=== PATIENT | female | born 1985 | race African-American/Black ===

== ENCOUNTER 2017-03-18 06:14 | Emergency (ER) | payer MEDICAID, OTHER ==
[~2017-03-18] VITALS: Ht 165.1 cm; Wt 78.0 kg
[2017-03-18] MEDS ORDERED: ONDANSETRON HCL 4MG/2ML VIAL IV STA (06:55)
[2017-03-18] MEDS ORDERED: VISCOUS LIDOCAINE 2% 15 ML UDC PO STA (06:55)
[2017-03-18] MEDS ORDERED: SODIUM CHLORIDE 0.9% 1,000 ML IV ONE (06:55)
[2017-03-18] MEDS ORDERED: FAMOTIDINE 20MG/2ML VIAL IV STA (06:55)
[2017-03-18] MEDS ORDERED: KETOROLAC 30MG/ML VIAL IV STA (06:55)
[2017-03-18] MEDS ORDERED: DICYCLOMINE 10 MG/5 ML ORAL SYR PO STA (06:55)
[2017-03-18] MEDS ORDERED: MAGNESIUM/ALUMINUM HYDROXIDE/SIMETHICONE 30ML UDC PO STA (06:55)
[2017-03-18 07:20] LABS: BASOPHILS % 0.3 % (0.0-2.0); HEMATOCRIT. 37.3 % (36.0-48.0); HEMOGLOBIN. 12.8 g/dL (12.0-16.0); LYMPHOCYTES % 13.7 % (20.0-50.0); MEAN CORPUSCULAR HEMOGLOBIN 28.2 pg (28.0-32.0); MEAN CORPUSCULAR HGB CONC 34.2 g/dL (31.0-37.0); MEAN CORPUSCULAR VOLUME 82.5 fL (81.0-99.0); MEAN PLATELET VOLUME 9.2 fl (7.4-10.4); MONOCYTES % 6.8 % (2.0-8.0); NEUTROPHILS % 77.2 % (40.0-76.0); PLATELET 259 x1000/uL (130-400); RED BLOOD CELL COUNT 4.52 mill/uL (4.2-5.4); WHITE BLOOD COUNT 8.6 x1000/uL (4.5-11.0)
[2017-03-18 07:29] LABS: PROTHROMBIN TIME 10.6 sec
[2017-03-18 07:32] LABS: HCG SCREEN NEGATIVE
[2017-03-18 07:35] LABS: ALANINE AMINOTRANSFERASE 136 IU/L (13-61); ALBUMIN 3.6 g/dL (3.4-5.0); AMYLASE 45 IU/L (25-115); ANION GAP 12; CALCIUM 9.7 mg/dL (8.5-10.1); CARBON DIOXIDE 27 mEq/L (21-32); CHLORIDE 103 mEq/L (98-107); INDEX HEMOLYSI 1 (1-3); INDEX ICTERIC 1 (1-4); INDEX LIPEMIC 1 (1-3); LIPASE 110 IU/L (73-393); TROPONIN I < 0.02 ng/mL (0.00-0.04); UREA NITROGEN BLOOD 14 mg/dL (7-21); eGFR > 60 mL/min (>60)
[2017-03-18 08:34] LABS: CLARITY URINE CLEAR (CLEAR); COLOR URINE YELLOW (YELLOW); GLUCOSE URINE NEGATIVE (NEGATIVE); KETONES URINE NEGATIVE (NEGATIVE); LEUKOCYTE ESTERASE URINE NEGATIVE (NEGATIVE); NITRITE URINE NEGATIVE (NEGATIVE); OCCULT BLOOD URINE NEGATIVE (NEGATIVE); PH URINE 7.5 (4.5-8.0); PROTEIN URINE NEGATIVE (NEGATIVE); UROBILINOGEN URINE 0.2 E.U./dL (0.2-1.0)
[2017-03-18 09:52] VITALS: BP 103/61
== END 2017-03-18 11:10 | disposition home or self-care (01) ==
LOC: ER 06:16
DX: K29.00 Acute gastritis without bleeding (principal); Z98.890 Other specified postprocedural states
CPT/HCPCS: 36415; 76705; 80053; 81003; 82150; 83690; 84484; 84703; 85025; 85610; 96361; 96374; 96375; 99285; J1885; J2405; J3490; J7030; Z7610

== ENCOUNTER 2017-10-13 10:36 | Emergency (ER) | payer MEDICAID ==
[~2017-10-13] VITALS: Ht 160 cm; Wt 79.0 kg
[~2017-10-13 10:36] MED LIST: LEVO500T2 PO; METR250T PO
[2017-10-13 11:19] VITALS: BP 126/79
[2017-10-13] MEDS ORDERED: MAGNESIUM/ALUMINUM HYDROXIDE/SIMETHICONE 30ML UDC PO STA (11:54)
[2017-10-13] MEDS ORDERED: ONDANSETRON 4MG ODT PO STA (11:54)
[2017-10-13] MEDS ORDERED: ACETAMINOPHEN 325MG TABLET PO STA (11:54)
[2017-10-13 12:14] LABS: BASOPHILS % 0.5 % (0.0-2.0); EOSINOPHILS % 3.8 % (0.0-5.0); HEMATOCRIT. 38.4 % (36.0-48.0); HEMOGLOBIN. 13.2 g/dL (12.0-16.0); LYMPHOCYTES % 24.1 % (20.0-50.0); MEAN CORPUSCULAR HEMOGLOBIN 28.8 pg (28.0-32.0); MEAN CORPUSCULAR VOLUME 83.6 fL (81.0-99.0); MEAN PLATELET VOLUME 10.1 fl (7.4-10.4); MONOCYTES % 7.6 % (2.0-8.0); PLATELET 248 x1000/uL (130-400); RED BLOOD CELL COUNT 4.59 mill/uL (4.2-5.4); RED CELL DISTRIBUTION WIDTH 13.8 % (11.6-14.6)
[2017-10-13 12:19] LABS: CLARITY URINE CLOUDY (CLEAR); COLOR URINE ORANGE (YELLOW); GLUCOSE URINE NEGATIVE (NEGATIVE); KETONES URINE NEGATIVE (NEGATIVE); LEUKOCYTE ESTERASE URINE 1+ (NEGATIVE); NITRITE URINE NEGATIVE (NEGATIVE); OCCULT BLOOD URINE 3+ (NEGATIVE); PH URINE 5.5 (4.5-8.0); PROTEIN URINE TRACE (NEGATIVE); SPECIFIC GRAVITY URINE 1.019 (1.005-1.030); UROBILINOGEN URINE 0.2 E.U./dL (0.2-1.0)
[2017-10-13 12:25] LABS: CARBON DIOXIDE 28 mEq/L (21-32); CHLORIDE 106 mEq/L (98-107)
== END 2017-10-13 14:33 | disposition home or self-care (01) ==
LOC: ER 10:51
DX: K21.9 Gastro-esophageal reflux disease without esophagitis (principal); N39.0 Urinary tract infection, site not specified
CPT/HCPCS: 36415; 80053; 81001; 81025; 83690; 85025; 99284; Q0162

== ENCOUNTER 2017-11-19 18:33 | Emergency (ER) | payer MEDICAID, OTHER ==
[~2017-11-19] VITALS: Ht 160 cm; Wt 83.0 kg
[2017-11-19] MEDS ORDERED: KETOROLAC 15MG/ML VIAL IM ONE (21:45)
[2017-11-19] MEDS ORDERED: DEXAMETHASONE 10 MG/ML VIAL IM ONE (21:45)
[2017-11-19 22:21] VITALS: BP 124/87
== END 2017-11-19 22:22 | disposition home or self-care (01) ==
LOC: ER 18:33
DX: J02.0 Streptococcal pharyngitis (principal); Z98.890 Other specified postprocedural states
CPT/HCPCS: 81025; 96372; 99284; J1100; J1885

== ENCOUNTER 2019-10-13 05:58 | Emergency (ER) | payer MEDICAID, OTHER ==
[~2019-10-13] VITALS: Ht 162.6 cm; Wt 90.0 kg
[2019-10-13 07:35] VITALS: BP 122/78
== END 2019-10-13 07:35 | disposition home or self-care (01) ==
LOC: ER 06:52
DX: O26.893 Other specified pregnancy related conditions, third trimester (principal); H60.591 Other noninfective acute otitis externa, right ear; E11.9 Type 2 diabetes mellitus without complications; Z98.890 Other specified postprocedural states
CPT/HCPCS: 99283

== ENCOUNTER 2021-08-01 16:49 | Emergency (ER) | payer MEDICAID ==
[~2021-08-01] VITALS: Ht 162.6 cm; Wt 73.0 kg
[~2021-08-01 16:49] MED LIST changes: +DIF15 MT; +DOXY100T2 MT; -LEVO500T2 PO; -METR250T PO; +METR500T MT; +NITR-87 MT
[2021-08-01] MEDS ORDERED: ACETAMINOPHEN 325MG TABLET PO ONE (18:30)
[2021-08-01] MEDS ORDERED: AMOXICILLIN/POTASSIUM CLAVULANATE 875/125MG TAB PO ONE (18:30)
[2021-08-01 18:44] LABS: BASOPHILS % 0.3 % (0.0-2.0); EOSINOPHILS % 3.4 % (0.0-5.0); HEMATOCRIT. 39.2 % (36.0-48.0); HEMOGLOBIN. 13.6 g/dL (12.0-16.0); LYMPHOCYTES % 19.6 % (20.0-50.0); MEAN CORPUSCULAR HEMOGLOBIN 29.4 pg (28.0-32.0); MEAN CORPUSCULAR VOLUME 84.6 fL (81.0-99.0); MEAN PLATELET VOLUME 10.2 fl (7.4-10.4); MONOCYTES % 6.6 % (2.0-8.0); NEUTROPHILS % 70.1 % (40.0-76.0); PLATELET 288 x1000/uL (130-400); RED BLOOD CELL COUNT 4.64 mill/uL (4.2-5.4); RED CELL DISTRIBUTION WIDTH 13.9 % (11.6-14.6)
[2021-08-01 18:47] LABS: CLARITY URINE CLEAR (CLEAR); COLOR URINE YELLOW (YELLOW); KETONES URINE NEGATIVE (NEGATIVE); LEUKOCYTE ESTERASE URINE NEGATIVE (NEGATIVE); NITRITE URINE NEGATIVE (NEGATIVE); OCCULT BLOOD URINE NEGATIVE (NEGATIVE); PROTEIN URINE NEGATIVE (NEGATIVE); SPECIFIC GRAVITY URINE 1.009 (1.005-1.030); UROBILINOGEN URINE 0.2 E.U./dL (0.2-1.0)
[2021-08-01 18:53] LABS: CHLORIDE 107 mEq/L (98-107)
[2021-08-01 19:05] LABS: PROTHROMBIN TIME 10.8 sec (9.6-11.0)
[2021-08-01] MEDS ORDERED: AMOX-424 MT (21:07)
[2021-08-01 21:42] VITALS: BP 110/68
== END 2021-08-01 21:44 | disposition home or self-care (01) ==
LOC: ER 16:49
DX: R51.9 Headache, unspecified (principal); Z98.890 Other specified postprocedural states; Z79.899 Other long term (current) drug therapy
CPT/HCPCS: 36415; 74176; 80053; 81003; 81025; 85025; 99285

== ENCOUNTER 2022-04-07 17:58 | Emergency (ER) | payer MEDICAID ==
[~2022-04-07] VITALS: Ht 160 cm; Wt 81.0 kg
[~2022-04-07 17:58] MED LIST changes: +AMOX-424 MT
[2022-04-07 20:49] LABS: BASOPHILS % 0.5 % (0.0-2.0); EOSINOPHILS % 4.6 % (0.0-5.0); HEMOGLOBIN. 13.8 g/dL (12.0-16.0); LYMPHOCYTES % 21.3 % (20.0-50.0); MEAN CORPUSCULAR HEMOGLOBIN 29.2 pg (28.0-32.0); MEAN CORPUSCULAR VOLUME 86.4 fL (81.0-99.0); MEAN PLATELET VOLUME 10.1 fl (7.4-10.4); MONOCYTES % 7.2 % (2.0-8.0); NEUTROPHILS % 66.4 % (40.0-76.0); PLATELET 287 x1000/uL (130-400); RED BLOOD CELL COUNT 4.74 mill/uL (4.2-5.4); RED CELL DISTRIBUTION WIDTH 13.8 % (11.6-14.6)
[2022-04-07 20:53] LABS: CHLORIDE 111 mEq/L (98-107)
[2022-04-07 21:03] LABS: B-HCG QUANTITATIVE 2 mIU/mL (<3)
[2022-04-07 21:11] LABS: CLARITY URINE CLEAR (CLEAR); COLOR URINE YELLOW (YELLOW); KETONES URINE NEGATIVE (NEGATIVE); LEUKOCYTE ESTERASE URINE NEGATIVE (NEGATIVE); NITRITE URINE NEGATIVE (NEGATIVE); OCCULT BLOOD URINE NEGATIVE (NEGATIVE); PH URINE 6.5 (4.5-8.0); PROTEIN URINE NEGATIVE (NEGATIVE); SPECIFIC GRAVITY URINE 1.019 (1.005-1.030); UROBILINOGEN URINE 0.2 E.U./dL (0.2-1.0)
[2022-04-07] MEDS ORDERED: CEFTRIAXONE SODIUM 1 G/VIAL IM ONE (23:15)
[2022-04-07] MEDS ORDERED: LIDOCAINE HCL 1% 20ML VIAL (Pyxis) INJ INFIL ONE (23:15)
[2022-04-07] MEDS ORDERED: CEFP200T13 MT (23:17)
[2022-04-07 23:41] VITALS: BP 138/75
== END 2022-04-07 23:42 | disposition home or self-care (01) ==
LOC: ER 17:58
DX: N12 Tubulo-interstitial nephritis, not specified as acute or chronic (principal); Z98.890 Other specified postprocedural states
CPT/HCPCS: 36415; 74176; 80053; 81003; 84702; 85025; 96372; 99284; J0696; J3490

== ENCOUNTER 2022-09-17 09:05 | Emergency (ER) | payer MEDICAID ==
[~2022-09-17] VITALS: Ht 160 cm; Wt 81.0 kg
[~2022-09-17 09:05] MED LIST changes: +CEFP200T13 MT
[2022-09-17 09:17] VITALS: BP 125/87
[2022-09-17] MEDS ORDERED: LIDOCAINE HCL/PF 1% 10 MG/ML 5ML VIAL INFIL ONE (10:00)
== END 2022-09-17 11:24 | disposition home or self-care (01) ==
LOC: ER 09:05
DX: S61.412A Laceration without foreign body of left hand, initial encounter (principal); W25.XXXA Contact with sharp glass, initial encounter; Y93.89 Activity, other specified; Y92.9 Unspecified place or not applicable; Z98.890 Other specified postprocedural states
CPT/HCPCS: 12001; 99282; J3490; Z7610

== ENCOUNTER 2022-09-25 09:29 | Emergency (ER) | payer MEDICAID ==
[~2022-09-25] VITALS: Ht 167.6 cm; Wt 81.0 kg
[2022-09-25 09:35] VITALS: BP 141/75
== END 2022-09-25 10:23 | disposition home or self-care (01) ==
LOC: ER 09:29
DX: S61.412A Laceration without foreign body of left hand, initial encounter (principal); I10 Essential (primary) hypertension; Z48.02 Encounter for removal of sutures; X58.XXXA Exposure to other specified factors, initial encounter; Y93.89 Activity, other specified; Y92.89 Other specified places as the place of occurrence of the external cause; Y99.8 Other external cause status
CPT/HCPCS: 12001; 99282; Z7610

== ENCOUNTER 2022-09-28 09:52 | Emergency (ER) | payer MEDICAID ==
[~2022-09-28] VITALS: Ht 152.4 cm; Wt 75.0 kg
[2022-09-28 10:07] VITALS: BP 133/86
[2022-09-28] MEDS ORDERED: BACITRACIN ZINC OINT UDPKT TOP ONE (11:45)
[2022-09-28] MEDS ORDERED: NEOM14OI TP (11:53)
== END 2022-09-28 12:06 | disposition home or self-care (01) ==
LOC: ER 09:52
DX: Z48.00 Encounter for change or removal of nonsurgical wound dressing (principal)
CPT/HCPCS: 99282

== ENCOUNTER 2023-01-18 00:23 | Emergency (ER) | payer MEDICAID ==
[~2023-01-18] VITALS: Ht 160 cm; Wt 82.0 kg
[~2023-01-18 00:23] MED LIST changes: +NEOM14OI TP
[2023-01-18 04:15] VITALS: BP 122/88
[2023-01-18] MEDS ORDERED: CIPHCO EACH EAR (05:36)
[2023-01-18] MEDS ORDERED: AMOX1TAB16 MT (05:36)
== END 2023-01-18 05:45 | disposition home or self-care (01) ==
LOC: ER 00:23
DX: H66.93 Otitis media, unspecified, bilateral (principal); H60.93 Unspecified otitis externa, bilateral
CPT/HCPCS: 99283

== ENCOUNTER 2023-02-08 16:30 | Emergency (ER) | payer MEDICAID ==
[~2023-02-08] VITALS: Ht 160 cm; Wt 79.1 kg
[~2023-02-08 16:30] MED LIST changes: +AMOX1TAB16 MT; +CIPHCO EACH EAR
[2023-02-08 16:38] VITALS: BP 149/52
== END 2023-02-08 21:29 | disposition left against medical advice (07) ==
LOC: ER 16:30
DX: Z53.21 Procedure and treatment not carried out due to patient leaving prior to being seen by health care provider (principal)

== ENCOUNTER 2023-02-23 08:18 | Emergency (ER) | payer MEDICAID ==
[~2023-02-23] VITALS: Ht 162.6 cm; Wt 73.0 kg
[2023-02-23] MEDS ORDERED: IBUPROFEN 600MG TABLET PO STA (08:32)
[2023-02-23 10:40] LABS: CLARITY URINE CLEAR (CLEAR); COLOR URINE YELLOW (YELLOW); KETONES URINE NEGATIVE (NEGATIVE); LEUKOCYTE ESTERASE URINE NEGATIVE (NEGATIVE); NITRITE URINE NEGATIVE (NEGATIVE); OCCULT BLOOD URINE NEGATIVE (NEGATIVE); PH URINE 7.5 (4.5-8.0); PROTEIN URINE NEGATIVE (NEGATIVE); SPECIFIC GRAVITY URINE 1.008 (1.005-1.030); UROBILINOGEN URINE 0.2 E.U./dL (0.2-1.0)
[2023-02-23] MEDS ORDERED: IBUPROFEN 600MG TABLET PO NR (11:15)
[2023-02-23] MEDS ORDERED: CYCL10TA21 MT (11:59)
[2023-02-23] MEDS ORDERED: IBUP-2029 MT (11:59)
[2023-02-23 14:03] VITALS: BP 116/73
== END 2023-02-23 14:19 | disposition home or self-care (01) ==
LOC: ER 08:18
DX: S30.0XXA Contusion of lower back and pelvis, initial encounter (principal); Z79.899 Other long term (current) drug therapy; Z98.890 Other specified postprocedural states; V49.40XA Driver injured in collision with unspecified motor vehicles in traffic accident, initial encounter; Y93.89 Activity, other specified; Y92.89 Other specified places as the place of occurrence of the external cause; Y99.8 Other external cause status
CPT/HCPCS: 72100; 81003; 99285

== ENCOUNTER 2023-12-15 16:34 | Emergency (ER) | payer SELFPAY ==
[~2023-12-15] VITALS: Ht 160 cm; Wt 82.0 kg
[~2023-12-15 16:34] MED LIST changes: +CYCL10TA21 MT; +IBUP-2029 MT
[2023-12-15 16:45] VITALS: BP 162/89; PULSE 86; RESP 18; TEMP 98.1; O2SAT 100
[2023-12-15 17:44] LABS: BASOPHILS % 0.4 % (0.0-2.0); EOSINOPHILS % 4.8 % (0.0-5.0); HEMATOCRIT. 41.1 % (36.0-48.0); HEMOGLOBIN. 13.5 g/dL (12.0-16.0); LYMPHOCYTES % 25.4 % (20.0-50.0); MEAN CORPUSCULAR HEMOGLOBIN 28.9 pg (28.0-32.0); MEAN CORPUSCULAR HGB CONC 32.8 g/dL (31.0-37.0); MEAN CORPUSCULAR VOLUME 88.2 fL (81.0-99.0); MEAN PLATELET VOLUME 10.2 fl (7.4-10.4); MONOCYTES % 9.2 % (2.0-8.0); NEUTROPHILS % 60.2 % (40.0-76.0); PLATELET 246 x1000/uL (130-400); RED BLOOD CELL COUNT 4.67 mill/uL (4.2-5.4); RED CELL DISTRIBUTION WIDTH 13.6 % (11.6-14.6); WHITE BLOOD COUNT 7.8 x1000/uL (4.5-11.0)
[2023-12-15 17:58] LABS: ALANINE AMINOTRANSFERASE 63 IU/L (10-49); ALBUMIN 4.5 g/dL (3.2-4.8); ASPARTATE AMINOTRANSFERASE 31 IU/L (<34); BILIRUBIN TOTAL 0.3 mg/dL (0.1-1.0); CALCIUM 9.8 mg/dL (8.7-10.4); CARBON DIOXIDE 25 mEq/L (21-32); CHLORIDE 108 mEq/L (98-107); CREATININE 0.5 mg/dL (0.6-1.0); GLUCOSE 110 mg/dL (70-105); POTASSIUM 4.1 mEq/L (3.5-5.1); PROTEIN TOTAL 7.9 g/dL (6.0-8.3); SODIUM 140 mEq/L (136-145); UREA NITROGEN BLOOD 10 mg/dL (9-23)
[2023-12-15 18:02] LABS: TROPONIN I HIGH SENSITIVITY < 4 ng/L (3.0-34)
[2023-12-15] MEDS ORDERED: TOPUD MT (19:39)
== END 2023-12-15 20:10 | disposition home or self-care (01) ==
LOC: ER 16:34
DX: R07.9 Chest pain, unspecified (principal); Z98.890 Other specified postprocedural states
CPT/HCPCS: 80053; 81025; 85025; 85379; 84484; 36415; 71045; 93005; 99285; Z7610